=== PATIENT | female | born 2000 ===

== ENCOUNTER 2022-05-16 18:29 | Inpatient (IN) | payer MEDICAID ==
[2022-05-17] MEDS ORDERED: ACETAMINOPHEN TAB 325 MG TAB PO PRN (15:42)
[2022-05-17] MEDS ORDERED: MAG HYDROX/AL HYDROX/SIMETH 30 ML CUP PO PRN (15:42)
[2022-05-17] MEDS ORDERED: MAGNESIUM HYDROXIDE 2,400 MG/10 ML CUP PO PRN (15:42)
[2022-05-17] MEDS ORDERED: HALOPERIDOL LACTATE 5 MG/ML 1 ML VIAL IM PRN (15:42)
[2022-05-17] MEDS ORDERED: LORazepam 1 MG TAB PO PRN (15:42)
[2022-05-17] MEDS ORDERED: LORazepam 2 MG/ML INJ IM PRN (15:43)
[2022-05-17] MEDS ORDERED: haloperidoL 5 MG TAB PO PRN (15:44)
[2022-05-17] MEDS ORDERED: MINERAL OIL-WHITE PETROLATUM 120 GM JAR TOPICAL PRN (22:00)
[2022-05-18 11:38] LABS: LDL Cholesterol,Calculated 159.3 mg/dL (0.0-131.0)
[2022-05-18] MEDS ORDERED: VENLAFAXINE HCL ER 37.5 MG CAP PO STA (18:10)
--- NOTE | 2022-05-18 18:18 | P.HP ---
Psychiatric H&P - . H&P Date: 05/18/22 History & Physical: IDENTIFYING DATA: Patient is a single 21-year-old [place] female was transferred from [facility] following a suicide attempt by intentional ingestion of oldeander seeds. HPI: Patient presented to the hospital as a transfer from [facility] following a suicide attempt by intentional ingestion of oldeander seeds. Per petition, "Patient intentionally ingested only intercedes in an apparent suicide attempt. Patient has a history of inpatient hospitalization." She denies taking any psychotropic medications currently. She reports she is "in love with this lesli" who is also her best friend (Anderson, 27 yo) but he doesn't feel the same way. She reports they are friends with benefits, and on/off relationship. He doesn't want to be with her and she was feeling down about it, so she started planning her suicide, and reports she took the toxic oleander seeds on - 05/13/22 (that she bough off the internet) but didn't feel anything happening, she was disappointed the suicide attempt was unsuccessful and wanted to attempt suicide again so she ordered the full oleander plant online (so she can eat the leaves) but is not sure if it has arrived to her house because of her being in the hospital. She told Anderson that she attempted suicide, and also told another friend (Jc) who called the police and police brought her to the ER. Mother was informed of the suicide attempt (not sure who told mother). She reports feeling down/depressed for the past two years, reports excessive guilt (over being the way that she is and making it hard on other people), reports feeling "tired" most of the time, reports poor concentration. She denies anhedonia and reports good appetite. She reports poor sleep schedule, staying up until 5-6am and sleeps in 1pm or 3-4 pm. Patient denies any suicidal or homicidal ideations, intent or plan currently. At this time, patient denies any auditory or visual hallucinations. Patient denies any flight of ideas racing thoughts and increased in goal directed behavior. Patient admits to using marijuana every other day. She denies any other illicit drug use. She denies recent alcohol use, but does report a history of suicide attempt while drunk. She denies smoking cigarettes but she does vape. She has an oral contraceptive at home but has not been taking it. PAST PSYCHIATRIC HISTORY: Patient states that she has been diagnosed with depression, anxiety, borderline personality disorder, and possibly bipolar II disorder. Patient denies being on any psychiatric medications: Buspar, Lexapro, Zoloft, Abilify, Latuda, Prozac, was supposed to switch to Duloxetine but didn't start it. Previous psychiatric hospitalizations: [facility] 2020 for suicide attempt by overdose on pain pills, Prozac with alcohol. Psychiatric outpatient follow-up: [facility] Suicide attempts: 3 times by overdose on pills PMH: denies ALLERGIES: as per EMR CHEMICAL DEPENDENCY HISTORY: as per HPI FAMILY PSYCHIATRIC/SUBSTANCE USE HISTORY: Adopted, does not know biological family. SOCIAL HISTORY: Patient was born in [place] and was adopted as an by an [place] couple. Raised in [facility]. She has a non-biologic brother that she reports she doesn't like and doesn't talk to. Adoptive parents when she was 6-7 years old. She does not have a relationship with her adoptive father because he's "toxic". Adoptive mother remarried (patient doesn't feel comfortable around her new step- father due to sexual comments he has made). Lives with her male friend (who is also her boss) and his , and another roommate. Works at [employer] Graduated high school Attended [employer] for one year but parents stopped paying for college when she moved out. MENTAL STATUS EXAM: General Appearance: Patient appears to be stated age, dressed in clean casual attire, has long hair, adequate hygiene and grooming. Behavior: Patient is seated without any agitated behavior. Speech: Patient's speech is fluent and non-pressured. Mood/Affect: Patient reports their mood is depressed, affect is congruent and constricted, becomes tearful.. Suicidality/Homicidality: Patient denies having any homicidal ideation intent or plan. Denies any current suicidal ideations, intent or plan. Perceptions: Patient denies any visual hallucinations and denies any auditory hallucinations. Though content/process: There is no evidence of any delusional thought content and thought process is linear and goal-directed. Memory and concentration: AOX3, grossly intact for the purposes of this session. Can spell "WORLD" backwards Judgment and insight: Fair STRENGTHS/WEAKNESSES: Strength is that patient is resilient. Weakness is that patient is impulsive and has family conflict. INTELLECT: Average IMPRESSIONS: Unspecified depressive disorder, r/o MDD Borderline personality disorder Cannabis use disorder PLAN: -Patient is admitted under involuntary status to [facility] for stabilization of psychiatric symptoms and safety. Patient has signed adult voluntary form and medication consent and is placed in patient's chart. -Medications: Will start patient on Effexor XR 37.5 mg daily in the morning starting today, and increase to 75 mg daily in the morning starting tomorrow morning for depression/anxiety. She would benefit from linking with a DBT therapist. -Ativan and Haldol PRN for agitation/aggression -Patient was counselled on substance abuse and desired to cut back on use -Patient was informed of the risks, benefits and side effects of the medication and patient verbally consented to taking the medications. Patient signed med consent form and was placed in chart. -Internal Medicine consult to perform medical evaluation and physical. -NRT - not needed since she does not smoke cigarettes. -SW on board for discharge planning. Encourage patient to participate in groups to work on coping skills. Allergies Allergy/AdvReac Type Severity Reaction Status Date / Time No Known Allergies Allergy Verified 05/17/22 15:42 Vital Signs Temp 97.5 F L 05/17/22 20:07 Pulse 68 05/17/22 20:07 Resp 16 05/17/22 20:07 BP 101/66 05/17/22 20:07 Pulse Ox 95 05/17/22 20:07 FiO2 Intake & Output 05/17/22 05/18/22 05/18/22 18:59 06:59 18:59 Weight 59.84 kg 54.3 kg 53.3 kg Laboratory Last Values Estimated Ave Glu mg/dL 112 05/18/22 07:19 Hemoglobin A1c 5.5 % (0.0-6.0) 05/18/22 07:19 Triglycerides 103.00 mg/dL (0.00-149.00) 05/18/22 07:19 Cholesterol 238.00 mg/dL (0.00-200.00) H 05/18/22 07:19 LDL Cholesterol, Calc 159.3 mg/dL (0.0-131.0) H 05/18/22 07:19 VLDL Cholesterol, Calc 20.60 mg/dL (5.00-40.00) 05/18/22 07:19 HDL Cholesterol 58.10 mg/dL (40.00-60.00) 05/18/22 07:19 Cholesterol/HDL Ratio 4.10 Ratio 05/18/22 07:19 TSH 1.840 mIU/L (0.465-4.680) 05/18/22 07:19 05/18/22 17:24
--- NOTE | 2022-05-19 02:41 | P.MDCNMH ---
History of Present Illness H&P Date: 05/19/22 Chief Complaint: Medical evaluation 21-year-old female denies any significant past medical history admits to history of depression and borderline personality Patient comes in due to suicidal attempt by ingesting poisonous seeds. She denies hallucinations. Patient denies any medical concerns at this time denies fevers chills coughing chest pain trouble breathing denies any nausea vomiting abdominal pain changes in bowel or urinary habits denies any bleeding. Patient has skin eczema requesting some creams Blood work reviewed showing hyperlipidemia A george admits to tobacco smoking marijuana use and occasional alcohol Review of Systems Pertinent positives as noted in HPI. All other systems were reviewed and are negative Past Medical History Past Medical History: No Reported History History of Any Multi-Drug Resistant Organisms: None Reported Past Surgical History: No Surgical Hx Reported Past Psychological History: Depression Additional Psychological History / Comment(s): Hx of several suicide attempts by OD one required hospitalization. Smoking Status: Vaper - Past Family History Family Additional Family Medical History / Comment(s): Patient has no knowledge of family history Medications and Allergies Allergies Allergy/AdvReac Type Severity Reaction Status Date / Time No Known Allergies Allergy Verified 05/17/22 15:42 Physical Exam Vitals: Intake and Output 05/18/22 05/18/22 05/19/22 14:59 22:59 06:59 Other: Weight 53.3 kg Constitutional: No acute distress, conversant, pleasant Eyes: Anicteric sclerae, moist conjunctiva, Pupils equal round reactive to light ENMT: NC/AT Oropharynx clear, no erythema, or exudates Neck: Supple, FROM, no masses, or JVD No carotid bruits No thyromegaly Lungs: Clear to auscultation Clear to percussion Normal respiratory effort, no accessory muscle use Cardiovascular: Heart regular in rate and rhythm, No murmurs, gallops, or rubs No peripheral edema Abdominal: Soft Nontender, no guarding, rebound or rigidity Abdomen moving with respiration Normoactive bowel sounds No hepatomegaly, No splenomegaly No palpable mass No abdominal wall hernia noted Skin: Small areas of patchy skin erythema and dryness over bilateral cheeks and upper extremities Extremities: No digital cyanosis No clubbing Pedal pulses intact and symmetrical Radial pulses intact and symmetrical No calf tenderness Psychiatric: Alert and oriented to person, place and time Appropriate affect fair judgement Neuro Muscles Strength 5/5 in all 4 extremities Sensation to light touch grossly present throughout Cranial nerves II-XII grossly intact No focal sensory deficits Lymphatics: no palpable cervical or supraclavicular , or inguinal lymph nodes Cranial Nerve Examination - Cranial Nerves Cranial Nerve II- Optic: Intact Cranial Nerve III- Oculomotor: Intact Cranial Nerve IV- Trochlear: Intact Cranial Nerve V- Trigeminal: Intact Cranial Nerve - Abducens: Intact Cranial Nerve VII- Facial: Intact Cranial Nerve VIII- Auditory: Intact Cranial Nerve IX- Glossopharyngeal: Intact Cranial Nerve X- Vagus: Intact Cranial Nerve XI- Accessory: Intact Cranial Nerve XII- Hypoglossal: Intact Results Labs: Abnormal Lab Results - Last 24 Hours (Table) 05/18/22 Range/Units 07:19 Cholesterol 238.00 H (0.00-200.00) mg/dL LDL Cholesterol, Calc 159.3 H (0.0-131.0) mg/dL Assessment and Plan Assessment: Depression suicidal ideation Management per psych Polysubstance abuse Patient counseled to quit smoking Patient counseled to quit drug of abuse marijuana Eczema Eucerin as needed Hyperlipidemia Consider lifestyle modification modification daily exercising, diet to control Follow-up in 3 months Thank you for allowing us to participate in the care of this patient. We will follow peripherally. Do not hesitate to contact us with questions. Someone can be reached from the [facility] hospitalist group at all hours of the day at [phone].
[2022-05-19] MEDS: VENLAFAXINE HCL ER 75 MG CAP PO SCH (10:06)
--- NOTE | 2022-05-19 12:43 | P.PN ---
Progress Note - Text Progress Note Date: 05/19/22 Interval History: Patient was seen resting in bed and was directable and agreeable to speak with sba underwriter in the office. Currently, the patient reports that she feels "empty." She feels like that there is "nothing to live for." She is currently endorsing suicidal ideation however no intention or plan. She denies any homicidal ideation, intention, and/or plan. She reports no auditory or visual hallucinations. She reports no paranoia or other delusions. The patient has been adherent with her medications and is reporting some insomnia as a side effect. We discussed at length processing emotions and provided the patient with dialectical behavioral therapy techniques. Mental Status Exam: General Appearance: Patient appears to be stated age is alert, directable, and cooperative. Behavior: Patient is calmly seated without any agitated behavior. Speech: Patient's speech is fluent and nonpressured. Mood/Affect: Mood is improving mildly, affect is congruent and constricted. Suicidality/Homicidality: Patient denies having any suicidal or homicidal ideation intent or plan. Perceptions: Patient denies any visual hallucinations and denies any auditory hallucinations Though content/process: There is no evidence of any delusional thought content and thought process is linear and goal-directed. Memory and concentration: AOX3, grossly intact for the purposes of this session Judgment and insight: Improving mildly Vital Signs Temp 97.5 F L 05/17/22 20:07 Pulse 68 05/17/22 20:07 Resp 16 05/17/22 20:07 BP 101/66 05/17/22 20:07 Pulse Ox 95 05/17/22 20:07 FiO2 Intake & Output 05/18/22 05/19/22 05/19/22 18:59 06:59 18:59 Weight 53.3 kg Assessment Unspecified depressive disorder, r/o MDD Borderline personality disorder Cannabis use disorder Plan: -Patient continues to meet criteria for inpatient psychiatric admission for symptom stabilization and safety. Patient has signed adult voluntary form and medication consent and was placed in patient's chart. -Medications: Continue Effexor XR 75 mg by mouth daily for depression/anxiety -When necessary Ativan and Haldol for agitation/aggression. -SW on board for discharge planning. Encouraged the patient to participate in milieu.
[2022-05-19 13:44] VITALS: BMI 33.5
[2022-05-20] MEDS: VENLAFAXINE HCL ER 75 MG CAP PO SCH (09:44)
--- NOTE | 2022-05-20 11:16 | P.PN ---
Progress Note - Text Progress Note Date: 05/20/22 Interval History: Patient was seen resting in bed and was directable and agreeable to speak with telegraphic typewriter repairer in the office. The patient continues to report that she feels "sad and empty." She continues to be dysphoric and stating that she has no will to live if not for her partner Anderson. Although, the patient is denying any suicidal or homicidal ideation, intention, and/or plan today. The patient's mother left a detailed message for her sleeping rights officer informed the treatment team of the patient's many attempts at suicide. The patient is currently denying any auditory or visual hallucinations. She is not reporting any paranoia or other delusions. We discussed at length dialectical behavioral therapy techniques and engaged in reflective listening and cognitive reframing. The patient appears to be contemplative albeit difficult to initiate action. Mental Status Exam: General Appearance: Patient appears to be stated age is alert, directable, and cooperative. Behavior: Patient is calmly seated without any agitated behavior. Speech: Patient's speech is fluent and nonpressured. Mood/Affect: Mood is sad and empty. Affect is withdrawn, crying and sad. Suicidality/Homicidality: Patient denies having any suicidal or homicidal ideation intent or plan. Perceptions: Patient denies any visual hallucinations and denies any auditory hallucinations Though content/process: Dysphoric thought process. Melancholic. Memory and concentration: AOX3, grossly intact for the purposes of this session Judgment and insight: Poor Vital Signs Temp 98 F 05/20/22 05:00 Pulse 72 05/20/22 05:00 Resp 16 05/20/22 05:00 BP 101/58 05/20/22 05:00 Pulse Ox 97 05/20/22 05:00 FiO2 Intake & Output 05/19/22 05/20/22 05/20/22 18:59 06:59 18:59 Weight 53.3 kg Assessment Unspecified depressive disorder, r/o MDD Borderline personality disorder Cannabis use disorder Plan: -Patient continues to meet criteria for inpatient psychiatric admission for symptom stabilization and safety. Patient has signed adult voluntary form and medication consent and was placed in patient's chart. -Medications: Increase Effexor XR to 150 mg by mouth daily for depression/anxiety -When necessary Ativan and Haldol for agitation/aggression. -SW on board for discharge planning. Encouraged the patient to participate in milieu.
[2022-05-21] MEDS: VENLAFAXINE HCL ER 75 MG CAP PO SCH (08:28)
--- NOTE | 2022-05-21 11:43 | P.PN ---
Progress Note - Text Progress Note Date: 05/21/22 Interval History: Patient was seen resting in bed and was directable and agreeable to speak with commercial insurance underwriter in the office. Currently, the patient stating that she is feeling better because she was able to talk with Anderson. However, the patient was counseled at great length that her mood should not be primarily reliant on whether a partner speaks to her or not. We discussed at length processing emotions and engaged in dialectical behavioral therapy techniques and discussed lincoln mind as a combination of logic and emotion. She is currently denying any suicidal or homicidal ideation, intention, and/or plan. She is not reporting any auditory or visual hallucinations. She denies any paranoia or other delusions. Mental Status Exam: General Appearance: Patient appears to be stated age is alert, directable, and cooperative. Behavior: Patient is calmly seated without any agitated behavior. Speech: Patient's speech is fluent and nonpressured. Mood/Affect: Mood is "happy today." Affect is constricted but euthymic. Suicidality/Homicidality: Patient denies having any suicidal or homicidal ideation intent or plan. Perceptions: Patient denies any visual hallucinations and denies any auditory hallucinations Though content/process: Dependent personality. Memory and concentration: AOX3, grossly intact for the purposes of this session Judgment and insight: Poor Vital Signs Temp 98 F 05/20/22 05:00 Pulse 72 05/20/22 05:00 Resp 16 05/20/22 05:00 BP 101/58 05/20/22 05:00 Pulse Ox 97 05/20/22 05:00 FiO2 Assessment Unspecified depressive disorder, r/o MDD Borderline personality disorder Cannabis use disorder Plan: -Patient continues to meet criteria for inpatient psychiatric admission for symptom stabilization and safety. Patient has signed adult voluntary form and medication consent and was placed in patient's chart. -Medications: Continue Effexor XR 150 mg by mouth daily for depression/anxiety -When necessary Ativan and Haldol for agitation/aggression. -SW on board for discharge planning. Encouraged the patient to participate in milieu.
[2022-05-21] MEDS: NICOTINE 7MG/24HR PATCH TRANSDERM SCH (20:55)
[2022-05-22] MEDS: VENLAFAXINE HCL ER 75 MG CAP PO SCH (08:35)
[2022-05-22] MEDS: NICOTINE 7MG/24HR PATCH TRANSDERM SCH (08:48)
--- NOTE | 2022-05-22 13:24 | P.PN ---
Progress Note - Text Progress Note Date: 05/22/22 Interval History: Patient was seen resting in bed and was directable and agreeable to speak with content writer in the office. The patient is pushing for discharge however discusses with this provider her previous suicide attempts. It was determined that the patient is unable to recall the precipitating factors for 2 of the 4 previous suicide attempts. She confesses that she feels like she is not gaining anything from being an inpatient psychiatric treatment however has been noted by staff to be minimally participating in individual and milieu therapies. She has been adherent with her medication and is not reporting any significant side effects at this time. She is denying any auditory or visual hallucinations. She is denying any suicidal or homicidal ideation. Mental Status Exam: General Appearance: Patient appears to be stated age is alert, directable, and cooperative. Behavior: Patient is calmly seated without any agitated behavior. Speech: Patient's speech is fluent and nonpressured. Mood/Affect: Mood is "I'm kind of bored." Affect is constricted Suicidality/Homicidality: Patient denies having any suicidal or homicidal ideation intent or plan. Perceptions: Patient denies any visual hallucinations and denies any auditory hallucinations Though content/process: Dependent personality. Memory and concentration: AOX3, grossly intact for the purposes of this session Judgment and insight: Poor Vital Signs Temp 98 F 05/20/22 05:00 Pulse 72 05/20/22 05:00 Resp 16 05/20/22 05:00 BP 101/58 05/20/22 05:00 Pulse Ox 97 05/20/22 05:00 FiO2 Intake & Output 05/21/22 05/22/22 05/22/22 18:59 06:59 18:59 Weight 53.3 kg Assessment Unspecified depressive disorder, r/o MDD Borderline personality disorder Cannabis use disorder Plan: -Patient continues to meet criteria for inpatient psychiatric admission for symptom stabilization and safety. Patient has signed adult voluntary form and medication consent and was placed in patient's chart. -Medications: Continue Effexor XR 150 mg by mouth daily for depression/anxiety -When necessary Ativan and Haldol for agitation/aggression. -SW on board for discharge planning. Encouraged the patient to participate in milieu.
[2022-05-23 00:56] VITALS: RESP 14; TEMP 96.9
[2022-05-23 00:58] VITALS: BP 93/54; PULSE 59
[2022-05-23] MEDS: NICOTINE 7MG/24HR PATCH TRANSDERM SCH (08:52)
[2022-05-23] MEDS: VENLAFAXINE HCL ER 75 MG CAP PO SCH (08:53)
--- NOTE | 2022-05-23 11:51 | P.DS ---
Providers Date of admission: 05/17/22 20:07 Expected date of discharge: 05/23/22 Attending physician: Bassam Kendrick MD Primary care physician: Stated None - Discharge Diagnosis(es) (1) Major depressive disorder Current Visit: Yes Status: Acute Priority: High (2) Borderline personality disorder Current Visit: Yes Status: Chronic Priority: Medium (3) Cannabis use disorder Current Visit: Yes Status: Chronic Priority: Medium Hospital Course: Admission HPI: Patient is a single 21-year-old [place]inamese female was transferred from [facility] following a suicide attempt by intentional ingestion of oldeander seeds. Patient presented to the hospital as a transfer from [facility] following a suicide attempt by intentional ingestion of oldeander seeds. Per petition, "Patient intentionally ingested only intercedes in an apparent suicide attempt. Patient has a history of inpatient hospitalization." She denies taking any psychotropic medications currently. She reports she is "in love with this lesli" who is also her best friend (Anderson, 27 yo) but he doesn't feel the same way. She reports they are friends with benefits, and on/off relationship. He doesn't want to be with her and she was feeling down about it, so she started planning her suicide, and reports she took the toxic oleander seeds on - 05/13/22 (that she bough off the internet) but didn't feel anything happening, she was disappointed the suicide attempt was unsuccessful and wanted to attempt suicide again so she ordered the full oleander plant online (so she can eat the leaves) but is not sure if it has arrived to her house because of her being in the hospital. She told Anderson that she attempted suicide, and also told another friend (Jc) who called the police and police brought her to the ER. Mother was informed of the suicide attempt (not sure who told mother). She reports feeling down/depressed for the past two years, reports excessive guilt (over being the way that she is and making it hard on other people), reports feeling "tired" most of the time, reports poor concentration. She denies anhedonia and reports good appetite. She reports poor sleep schedule, staying up until 5-6am and sleeps in 1pm or 3-4 pm. Patient denies any suicidal or homicidal ideations, intent or plan currently. At this time, patient denies any auditory or visual hallucinations. Patient denies any flight of ideas racing thoughts and increased in goal directed behavior. Patient admits to using marijuana every other day. She denies any other illicit drug use. She denies recent alcohol use, but does report a history of suicide attempt while drunk. She denies smoking cigarettes but she does vape. She has an oral contraceptive at home but has not been taking it. Patient states that she has been diagnosed with depression, anxiety, borderline personality disorder, and possibly bipolar II disorder. Patient denies being on any psychiatric medications: Buspar, Lexapro, Zoloft, Abilify, Latuda, Prozac, was supposed to switch to Duloxetine but didn't start it. Previous psychiatric hospitalizations: [facility] 2020 for suicide attempt by overdose on pain pills, Prozac with alcohol. Psychiatric outpatient follow-up: [facility] Suicide attempts: 3 times by overdose on pills Hospital course: Upon admission to the unit patient was initially presenting with a depressed and tearful affect. Patient was however directable and agreeable to commence treatment. Patient got along well with other patients on the unit and followed unit protocol. Patient was compliant with the medications and denied any side effects throughout hospital course. Patient was started on Effexor for management of depression/anxiety and was introduced to the concept of dialectical behavioral therapy. Patient spoke of her stressors and engaged in therapy both group and individual. Patient was also seen by medical team for history and physical exam. Over the course the hospitalization, the patient's Effexor was gradually titrated and trazodone was added to her regimen to help with insomnia. This provider engaged in dialectical behavioral therapy and techniques with the patient in order to treat her borderline personality disorder. The patient participated in the therapy. On the day of discharge, the patient is not reporting any suicidal or homicidal ideation, intention, and/or plan. She is not reporting any auditory or visual hallucinations. She is denying any paranoia or other delusions. She has been adherent with her medication is not reporting any significant side effects. The patient does not have a significant history substance abuse however was counseled great length on abstaining most substances including alcohol and marijuana. The patient has had numerous suicide attempts and we discussed safety planning and warning signs should she feel suicidal. We discussed utilization of crisis numbers and engaging in appropriate outpatient psychotherapy such as dialectical behavioral therapy. Prior to discharge, family meeting was arranged by aids social worker to answer questions and ensure safety. The patient reports no medical issues or concerns and was evaluated by medical team prior to discharge. Mental status exam: General Appearance: Patient appears to be stated age is alert, pleasant, and cooperative. Patient is in no acute distress and has fair hygiene and grooming Behavior: Patient is calmly seated without any agitated behavior. Speech: Patient's speech is fluent and nonpressured. Mood/Affect: Patient reports their mood is "doing okay", affect is congruent and euthymic and constricted. Suicidality/Homicidality: Patient denies having any suicidal or homicidal ideation intent or plan. Perceptions: Patient denies any auditory or visual hallucinations. Though content/process: There is no evidence of any delusional thought content and thought process is linear and goal-directed. Patient is future oriented. Memory and concentration: AOX3, grossly intact for the purposes of this session. Can spell "WORLD" backwards correctly. Judgment and insight: Improved with guarded prognosis Impression: Borderline personality disorder Major depressive disorder Cannabis use disorder Plan: -Continue with discharge today as patient has improved and stabilized psychiatrically and is not currently an imminent threat to herself and/or others. Patient will remain at chronically elevated risk due to her previous attempts at suicide. -HIGHLY RECOMMEND DBT OUTPATIENT. -Continue medications: Effexor 75 mg by mouth daily for depression/anxiety Trazodone 100 mg by mouth at bedtime for depression/insomnia -Patient was counseled on the need for medication compliance and appropriate follow-up at mental health and also primary care for medical issues. Patient verbalized understanding and agreed. -Social work to arrange for and conduct family meeting to ensure safety upon di scharge and answer any questions/concerns. Social work also to arrange for patients follow up appointments for psychiatric care along with follow up with primary care provider. -Patient counseled on abstaining from recreational drugs and marijuana and alcohol. Was informed/educated on the adverse effects on their physical and mental health. Patient verbally agreed and understood. -Patient was instructed to return to the hospital or seek immediate medical care if their psychiatric or medical symptoms do worsen or reoccur. -Psychoeducation and supportive therapy provided to patient. Risks and benefits of pharmacological treatment versus the risks and benefits of nontreatment weight and discussed. Informed consent discussion held. Common side effects of psychotropics discussed such as, but not limited to headache, GI disturbance, sexual dysfunction, movement disorders, sedation, and orthostatic hypotension. Life threatening and blackbox warnings of prescribed medications also discussed. Potential risks of operating a vehicle or heavy machinery discussed with patient at length. Advised on importance of compliance and a reliable and responsible manner. Patient advised to review FDA consumer labeling of all medications prior to taking. Patient verbalized understanding of potential risks, and agrees with current treatment plan. Patient advised to medically contact physician/emergency personnel if any acute changes in condition occur. Vital Signs Temp 96.9 F L 05/23/22 00:55 Pulse 59 L 05/23/22 00:57 Resp 14 05/23/22 00:55 BP 93/54 05/23/22 00:57 Pulse Ox 97 05/20/22 05:00 FiO2 Intake & Output 05/22/22 05/23/22 05/23/22 18:59 06:59 18:59 Weight 53.3 kg Laboratory Results Estimated Ave Glu mg/dL 112 05/18/22 07:19 Hemoglobin A1c 5.5 % (0.0-6.0) 05/18/22 07:19 Triglycerides 103.00 mg/dL (0.00-149.00) 05/18/22 07:19 Cholesterol 238.00 mg/dL (0.00-200.00) H 05/18/22 07:19 LDL Cholesterol, Calc 159.3 mg/dL (0.0-131.0) H 05/18/22 07:19 VLDL Cholesterol, Calc 20.60 mg/dL (5.00-40.00) 05/18/22 07:19 HDL Cholesterol 58.10 mg/dL (40.00-60.00) 05/18/22 07:19 Cholesterol/HDL Ratio 4.10 Ratio 05/18/22 07:19 TSH 1.840 mIU/L (0.465-4.680) 05/18/22 07:19 Allergies Allergy/AdvReac Type Severity Reaction Status Date / Time No Known Allergies Allergy Verified 05/17/22 15:42 Patient Condition at Discharge: Stable Plan - Discharge Summary Discharge Rx Participant: No New Discharge Prescriptions: New traZODone HCL [Desyrel] 100 mg PO HS 15 Days tab Venlafaxine HCl ER [Effexor XR] 75 mg PO DAILY 15 Days cap Discharge Medication List Venlafaxine HCl ER [Effexor XR] 75 mg PO DAILY 15 Days cap 05/23/22 [Rx] traZODone HCL [Desyrel] 100 mg PO HS 15 Days tab 05/23/22 [Rx] Follow up Appointment(s)/Referral(s): Counseling, Renewal [Other] - 05/28/22 4:00 pm (Vivian Ochoa ) [facility] [Other] - 1 Week Patient Instructions/Handouts: Depression (DC) Activity/Diet/Wound Care/Special Instructions: Avoid the use of street drugs and alcohol. Take all prescriptions as prescrib ed. When you are in need of refills on your medications, please contact your medical provider and/or outpatient psychiatrist to have this done. Please go to scheduled outpatient appointment for aftercare treatment. If symptoms return or become worse, call the crisis line at and/or go to the nearest emergency room for evaluation. Discharge Disposition: HOME SELF-CARE
[2022-05-23] MEDS ORDERED: traZODone HCL 100 MG TAB PO SCH (21:00)
== END 2022-05-23 12:42 | disposition home or self-care (01) | DRG 881 ==
LOC: 3MHU 05-17 20:07
PROVIDERS: ADMIT Psychiatry & Neurology Psychiatry; ATTEND Psychiatry & Neurology Psychiatry
DX: F32.9 Major depressive disorder, single episode, unspecified (principal); R45.851 Suicidal ideations; F60.3 Borderline personality disorder; R53.83 Other fatigue; F17.290 Nicotine dependence, other tobacco product, uncomplicated; T38.4X6A Underdosing of oral contraceptives, initial encounter; F41.9 Anxiety disorder, unspecified; T43.216A Underdosing of selective serotonin and norepinephrine reuptake inhibitors, initial encounter; E78.5 Hyperlipidemia, unspecified; L30.9 Dermatitis, unspecified; G47.01 Insomnia due to medical condition; Z62.898 Other specified problems related to upbringing; T62.2X2 Toxic effect of other ingested (parts of) plant(s), intentional self-harm; X83.8XXD Intentional self-harm by other specified means, subsequent encounter; Z63.8 Other specified problems related to primary support group; Z91.51 Personal history of suicidal behavior; Z79.3 Long term (current) use of hormonal contraceptives; Z91.14 Patient's other noncompliance with medication regimen; Z79.899 Other long term (current) drug therapy
CPT/HCPCS: 80061; 83036; 84443